=== PATIENT | female | born 1965 | race Caucasian/White ===

== ENCOUNTER → 2016-08-10 | Day surgery (SDC) | payer BC ==
[2016-08-05 08:47] VITALS: BMI 24.3
[~2016-08-10] MED LIST: ASPIRIN 81 MG CHEW PO SCH; CHOLECALCIFEROL 1,000 UNIT TAB PO SCH; CHROMIUM PICOLINATE PO SCH; CYANOCOBALAMIN 500 MCG TAB PO SCH; LACTOBACILLUS ACIDOPH & BULGAR 1 EACH PACKET PO SCH; LISINOPRIL 10 MG TAB PO SCH; MAGNESIUM OXIDE 250 MG TAB PO SCH; MIDAZOLAM 2 MG/2 ML VIAL IVP ONE; MIDAZOLAM 2 MG/2 ML VIAL ONE; MULTIVITAMINS, THERA 1 EACH TAB PO SCH; NON-FORMULARY DRUG (Omega-3 Fatty Acids/Fish Oil [Fish Oil 1,000 Mg Softgel] 1 EACH) PO SCH; SODIUM CHLORIDE 0.9% 1,000 ML IV ONE; SODIUM CHLORIDE 0.9% 1,000 ML IV SCH; fentaNYL (PF) 50 MCG/ML 2 ML AMP IV ONE; fentaNYL (PF) 50 MCG/ML 2 ML AMP ONE
[2016-08-10 06:29] VITALS: RESP 18
[2016-08-10] MEDS: BENZOCAINE SPRAY 100 APPLIC/CAN MUCOUS MEM ONE ×2 (07:12→07:15)
[2016-08-10 07:20] LABS: Basophils % (A) 1 %; CH 33.5; CHCM 34.9; Eosinophils # (A) 0.2 k/uL (0-0.7); Eosinophils % (A) 4 %; HCT 38.4 % (34.0-46.0); HDW 2.55; HGB 13.2 gm/dL (11.4-16.0); Luc # (Auto) 0.18; Luc % (Auto) 4; Lymphocytes # (A) 1.5 k/uL (1.0-4.8); Lymphocytes % (A) 33 %; MCHC 34.3 g/dL (31.0-37.0); MCV 96.3 fL (80.0-100.0); Mean Platelet Volume 6.8; Monocytes # (A) 0.2 k/uL (0-1.0); Monocytes % (A) 4 %; Neutrophils # (A) 2.4 k/uL (1.3-7.7); Neutrophils % (A) 54 %; RBC 3.98 m/uL (3.80-5.40); RDW 12.5 % (11.5-15.5); WBC 4.4 k/uL (3.8-10.6); WBC (Perox) 4.48
[2016-08-10 09:17] VITALS: BP 112/63; PULSE 66; TEMP 98.2
--- NOTE | 2016-08-10 13:49 | ECHOT ---
DATE OF SERVICE: 08/10/16. INDICATIONS: ( ) Mitral valve. PROCEDURE: After explaining the procedure to the patient, as well as the risks and complications, blood pressure, O2 saturation was monitored. The throat was sprayed with Cetacaine. She received 3 mg intravenous Versed, 50 micrograms Intravenous Fentanyl. The probe was introduced into the esophagus without difficulty and images were obtained. The probe was removed, there were no immediate complications. FINDINGS: Left atrial size is normal, left atrial appendage is normal, left ventricular size and systolic function were normal. The aortic valve, mitral valve, and tricuspid and pulmonic valve appears to be normal. Descending thoracic aorta appears to be normal. There was no shunting across the interatrial septum with Valsalva maneuver. DOPPLER: Pulse wave and color Doppler obtained and revealed mild to moderate mitral regurgitation with mild tricuspid regurgitation. There was no shunting by color Doppler study. CONCLUSION: 1. Normal left ventricular size systolic function. 2. Mild to moderate mitral regurgitation with normal appearance of the mitral valve. 3. Mild tricuspid regurgitation. 4. No shunting across the interatrial septum. 5. Normal appearance of the descending thoracic aorta. [facility]
== END | disposition home or self-care (01) ==
LOC: CATHCVL 05:54
PROVIDERS: ATTEND Internal Medicine Interventional Cardiology
DX: I08.1 Rheumatic disorders of both mitral and tricuspid valves (principal); I49.3 Ventricular premature depolarization; I10 Essential (primary) hypertension; Z79.82 Long term (current) use of aspirin; Z79.899 Other long term (current) drug therapy; Z88.5 Allergy status to narcotic agent; Z88.8 Allergy status to other drugs, medicaments and biological substances
CPT/HCPCS: 93312; 93320; 93325; 85025; 81025; J2250; J3010

== ENCOUNTER → 2017-02-23 | Outpatient (CLI) | payer BC ==
--- NOTE | 2017-02-24 10:30 | WWHP ---
DATE OF SERVICE: 02/23/2017 CHIEF COMPLAINT: The patient is here for her routine gynecologic exam. HPI: This is a 52-year-old G3, P3 with an LMP of 01/30/2017. The patient is status post tubal ligation. She is without gynecologic complaints and states her periods are regular every month. She denies hot flashes. PAST MEDICAL HISTORY: Chronic hypertension and intermittent PVC's. MEDICATIONS: 1. Lisinopril 10 mg daily. 2. Aspirin 81 mg daily. 3. Vitamin D3 five thousand units daily. 4. Multivitamin daily. 5. Fish oil supplement daily. 6. Vitamin B12 supplement daily. 7. Magnesium supplement daily. 8. Chromium supplement daily. 9. Probiotic daily. Allergies to MORPHINE, DEMEROL, and DARVOCET. The all cause tachycardia. 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 SOCIAL HISTORY: She smoked only as a teenager but quit. She has about 2 alcoholic drinks per week and denies drug use. 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 REVIEW OF SYSTEMS: Weight has been stable. She denies respiratory, cardiac or GI problems. PHYSICAL EXAM: Blood pressure 134/81, height 5 feet 10 inches, weight 177 pounds, temperature 98.6, pulse 71. This is a well-developed, well-nourished white female who is alert and oriented x3, in no acute distress. HEENT is within normal limits. NECK: Supple without mass or thyromegaly. CHEST AND LUNGS: Clear to auscultation. HEART: Regular rate and rhythm. Breasts are without mass or discharge. Axillary exam is negative for adenopathy. BACK: Negative for CVA tenderness. ABDOMEN: Soft, nontender without palpable masses. PELVIC EXAM: Normal external genitalia. Cervix and vagina appear normal. There is no evidence of prolapse. The uterus is midposition, nongravid size and nontender. There are no palpable adnexal masses or tenderness. RECTOVAGINAL EXAM is negative for mass or tenderness and is negative for occult blood. EXTREMITIES: Nontender. IMPRESSION: 1. A 52-year-old premenopausal female with normal gynecologic exam. 2. She is status post tubal ligation. PLAN: 1. PAP smear was performed. 2. Self breast examination was discussed. 3. Mammogram will be due next month and a slip was given to the patient for this. 4. Osteoporosis prevention was discussed. 5. She will return in 1 year. JOHANNA
== END | disposition home or self-care (01) ==
LOC: WWCWWP 09:16
PROVIDERS: ATTEND Obstetrics & Gynecology
DX: Z01.419 Encounter for gynecological examination (general) (routine) without abnormal findings (principal)

== ENCOUNTER → 2017-03-08 | Outpatient (CLI) | payer BC ==
--- NOTE | 2017-03-09 11:32 | MM ---
Reason for exam: screening (asymptomatic). Last mammogram was performed 1 year ago. History: Benign US biopsy breast VAD LT of the left breast, November 12, 2015. Physical Findings: A clinical breast exam by your physician is recommended on an annual basis and results should be correlated with mammographic findings. MG 3D Screening Mammo W/Cad Bilateral CC and MLO view(s) were taken. Prior study comparison: March 04, 2016, bilateral MG 3d diag mammo w/cad ILDEFONSO. November 12, 2015, left breast MG diagnostic mammo LT wo CAD. The breast tissue is heterogeneously dense. This may lower the sensitivity of mammography. Previous mammotome biopsy in the left breast. No significant changes when compared with prior studies. ASSESSMENT: Benign, BI-RAD 2 RECOMMENDATION: Routine screening mammogram of both breasts in 1 year.
== END | disposition home or self-care (01) ==
LOC: RADMAMWWP 07:32
PROVIDERS: ATTEND Obstetrics & Gynecology
DX: Z12.31 Encounter for screening mammogram for malignant neoplasm of breast (principal)
CPT/HCPCS: 77063; G0202

== ENCOUNTER 2017-09-20 08:14 | Day surgery (SDC) | payer BC ==
[2017-09-16 11:06] VITALS: BMI 25.1
[~2017-09-20 08:14] MED LIST changes: -ASPIRIN 81 MG CHEW PO SCH; -CHOLECALCIFEROL 1,000 UNIT TAB PO SCH; -CHROMIUM PICOLINATE PO SCH; -CYANOCOBALAMIN 500 MCG TAB PO SCH; +LACTATED RINGERS 1,000 ML IV SCH; -LACTOBACILLUS ACIDOPH & BULGAR 1 EACH PACKET PO SCH; -LISINOPRIL 10 MG TAB PO SCH; -MAGNESIUM OXIDE 250 MG TAB PO SCH; -MIDAZOLAM 2 MG/2 ML VIAL IVP ONE; -MIDAZOLAM 2 MG/2 ML VIAL ONE; -MULTIVITAMINS, THERA 1 EACH TAB PO SCH; -NON-FORMULARY DRUG (Omega-3 Fatty Acids/Fish Oil [Fish Oil 1,000 Mg Softgel] 1 EACH) PO SCH; -SODIUM CHLORIDE 0.9% 1,000 ML IV ONE; -SODIUM CHLORIDE 0.9% 1,000 ML IV SCH; -fentaNYL (PF) 50 MCG/ML 2 ML AMP IV ONE; -fentaNYL (PF) 50 MCG/ML 2 ML AMP ONE
[2017-09-20 09:05] VITALS: TEMP 98.2
[2017-09-20] MEDS ORDERED: LIDOCAINE 1% 20 ML VIAL (10MG/ML) FOR IV START INTRADERMA ONE (09:05)
[2017-09-20] MEDS ORDERED: PROPOFOL 10 MG/ML 20 ML VIAL IV ONE (09:10)
--- NOTE | 2017-09-20 09:37 | P.PCN ---
Date of Procedure: 09/20/17 Procedure(s) Performed: Procedure: Total colonoscopy. Preoperative diagnosis: Screening for neoplasia. Postoperative diagnosis: Exam within normal limits. Preparation: HalfLytely prep. Sedation: Was provided by anesthesia. Brief clinical history: The patient is a 52-year-old female who is scheduled for this evaluation for screening for neoplasia. She has nonspecific abdominal complaints but no bleeding or anemia. Patient is adopted and accordingly she is not aware of any FH of colon cancer. This would be her first colonoscopy. Procedure: With the patient on her left lateral decubitus position and after informed consent and adequate sedation, the perianal area was inspected and it did not show any fissures or fistulas. There were no masses felt on digital rectal examination. The Olympus CFQ 160L video colonoscope was then inserted in the rectum in the usual fashion and advanced to the cecum. The mucosa appeared healthy. No polyps or tumors were seen or any obvious diverticular disease or other pathology. I retroflexed the endoscope in the rectum before the endoscope was withdrawn. The patient tolerated the procedure well. Plan: The patient was reassured. She will follow-up with you as planned and I recommended repeat exam in 10 years.
[2017-09-20 09:53] VITALS: BP 124/84; PULSE 65; RESP 16
== END 2017-09-20 10:04 | disposition home or self-care (01) ==
LOC: ORWHC2ENDO 08:14
DX: Z12.11 Encounter for screening for malignant neoplasm of colon (principal); I10 Essential (primary) hypertension; Z79.82 Long term (current) use of aspirin; Z79.899 Other long term (current) drug therapy; Z88.5 Allergy status to narcotic agent
CPT/HCPCS: 81025; J2704; G0121

== ENCOUNTER → 2018-09-20 | Outpatient (CLI) | payer BC ==
[2018-09-20 13:00] VITALS: BP 138/72; PULSE 90; RESP 18; TEMP 98.1; BMI 25.1
--- NOTE | 2018-09-20 13:49 | P.HPOB ---
History of Present Illness H&P Date: 09/20/18 Chief Complaint: The patient is here for her routine gynecologic exam and mammogram. This is a 53-year-old G3 PIII with an LMP of 08/29/2018. The patient is without gynecologic complaints. She states her menses have been regular every month except she did not have a menstrual period in June 2018. She denies hot flashes during the day but occasionally has some hot flashes at night around the time of her menstrual period. Review of Systems The patient has gained 2 pounds over the last year. She denies respiratory, cardiac, or G.I. problems. Past Medical History Past Medical History: Hypertension Additional Past Medical History / Comment(s): HEART PALPITATIONS, PVC's occ, leaky mitral valve. 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 History of Any Multi-Drug Resistant Organisms: None Reported Past Surgical History: Breast Surgery (Left biopsy), Joint Replacement, Orthopedic Surgery, Tonsillectomy, Tubal Ligation Additional Past Surgical History / Comment(s): LEFT HIP replacement X2, ILDEFONSO FOOT RECONSTRUCTION, CORRECTIVE OSTEOTOMY ildefonso hips, unilateral salpingo- oophorectomy in 1988. Colonoscopy 2018(next 10 yrs). Past Anesthesia/Blood Transfusion Reactions: No Reported Reaction Additional Past Anesthesia/Blood Transfusion Reaction / Comment(s): HX OF BLOOD TRANSFUSION-NO REACTION. NO FAMILY HX- PT ADOPTED. 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 - Past Family History Mother Family Medical History: Unable to Obtain Additional Family Medical History / Comment(s): PT ADOPTED Medications and Allergies Home Medications Medication Instructions Recorded Confirmed Type Aspirin [Adult Low Dose Aspirin EC] 81 mg PO DAILY 08/05/16 09/20/18 History Cholecalciferol [Vitamin D3] 2,000 unit PO DAILY 08/05/16 09/20/18 History Chromium Picolinate 1 tab PO DAILY 08/05/16 09/20/18 History L.acidoph,Paracasei, B.lactis 1 each PO DAILY 08/05/16 09/20/18 History [Probiotic] Lisinopril [Zestril] 10 mg PO DAILY 08/05/16 09/20/18 History Magnesium 500 mg PO DAILY 08/05/16 09/20/18 History Multivitamins, Thera [Multivitamin] 1 tab PO DAILY 08/05/16 09/20/18 History Beth[place]-3 Fatty Acids/Fish Oil [Fish 1 each PO DAILY 08/05/16 09/20/18 History Oil 1,000 mg Softgel] Vitamin B-12 1 tab PO DAILY 08/05/16 09/20/18 History Allergies Allergy/AdvReac Type Severity Reaction Status Date / Time meperidine [From Demerol] AdvReac Unknown Rapid Verified 09/20/17 08:40 Heart Rate, Sweats morphine AdvReac Unknown Rapid Verified 09/20/17 08:40 Heart Rate, Sweats propoxyphene AdvReac Unknown Rapid Verified 09/20/17 08:40 [From Darvocet-N 100] Heart Rate, Sweats Exam Vital Signs Temp Pulse Resp BP Pulse Ox 09/20/18 12:57 98.1 F 90 18 138/72 97 Intake and Output 09/19/18 09/20/18 09/20/18 22:59 06:59 14:59 Other: Weight 79.379 kg Height 5'10", weight 175 pounds, BMI 25.1. This is a well-developed well-nourished white female who is alert and oriented times 3 in no acute distress. HEENT: Within normal limits. NECK: Supple without mass or thyromegaly. CHEST AND LUNGS: Clear to auscultation. HEART: Regular rate and rhythm. BREASTS: Are without mass or discharge. AXILLARY EXAM: Negative for adenopathy. BACK: Negative for CVA tenderness. ABDOMEN: Soft, nontender, without palpable masses. PELVIC EXAM: Normal external genitalia. Cervix and vagina appear normal. There is no unusual discharge. There is no evidence of prolapse. The uterus is midposition, nongravid size and nontender. There are no palpable adnexal masses or tenderness. RECTAL EXAM: rectovaginal exam is negative for mass or tenderness and is negative for occult blood. EXTREMITIES: Nontender. IMPRESSION: 1. 53-year-old female status post tubal sterilization with normal gynecologic exam. Probable early perimenopause. PLAN: 1. Pap smear was deferred since she had a normal one on 02/23/2017. 2. Self breast awareness was discussed with the patient. 3. Screening mammogram will be done today. 4. Osteoporosis prevention was discussed. I have stressed the importance of adequate calcium, vitamin D and regular exercise. Recommended amounts of calcium and vitamin D were also discussed. 5. She will return in one year.
--- NOTE | 2018-09-22 09:55 | MM ---
Reason for exam: screening (asymptomatic). Last mammogram was performed 1 year and 6 months ago. History: Benign US biopsy breast VAD LT of the left breast, November 12, 2015. Physical Findings: A clinical breast exam by your physician is recommended on an annual basis and results should be correlated with mammographic findings. MG 3D Screening Mammo W/Cad Bilateral CC and MLO view(s) were taken. Prior study comparison: March 08, 2017, bilateral MG 3d screening mammo w/cad. March 04, 2016, bilateral MG 3d diag mammo w/cad ILDEFONSO. The breast tissue is heterogeneously dense. This may lower the sensitivity of mammography. Finding: There are typically benign stable fine grouped/clustered calcifications in the upper outer quadrant of the right breast. Previous mammotome biopsy in the left breast. No significant changes in finding since March 08, 2017 and March 04, 2016. ASSESSMENT: Benign, BI-RAD 2 RECOMMENDATION: Routine screening mammogram of both breasts in 1 year.
== END | disposition home or self-care (01) ==
LOC: WWCWWP 12:42
PROVIDERS: ATTEND Obstetrics & Gynecology
DX: Z12.31 Encounter for screening mammogram for malignant neoplasm of breast (principal)
CPT/HCPCS: 77063; 77067

== ENCOUNTER → 2019-05-09 | Outpatient (CLI) | payer BC ==
[2019-05-09 08:18] VITALS: BP 143/85; PULSE 69; RESP 16; TEMP 98.1; BMI 25.2
--- NOTE | 2019-05-09 09:13 | P.PN ---
Progress Note - Text Progress Note Date: 05/09/19 Chief Complaint: Heavier menstrual bleeding with irregularity HPI: This is a 54-year-old with an LMP of 04/23/2019. She is status post tubal ligation. Menstrual periods have become slightly irregular about every 4- 7 weeks with heavier flow than usual. She has to change her protection every 2 hours when the bleeding is heavy and has soaked through her protection at times. She has also noticed some clotting. She also has several days of spotting following the heavier flow. She has noticed hot flashes and night sweats which are not very severe. She has also noticed more discomfort with sexual intercourse and this can feel "raw". She has tried lubricants without success. On the heavier period days she can occasionally feel lightheaded. She also feels that she can get more emotional at times. ROS: She denies respiratory, cardiac, or GI problems. PE: Blood pressure: 143/85, Height: 5 feet 10 inches, Weight: 176 pounds, Temperature: 98.1, Pulse: 69. Pulse oximeter 99%. This is a well developed, well nourished, white female who is alert and orientedx3, in no acute distress. Pelvic exam: Normal external genitalia. Cervix and vagina appear normal without significant atrophy. There is no unusual discharge. There is no cervical motion tenderness. Uterus is mid position, multiparous, nongravid size and nontender. There are no palpable adnexal masses or tenderness. Impression: 1. 54-year-old perimenopausal female who is status post tubal ligation, with normal gynecologic exam. 2. Menorrhagia associated with perimenopausal changes. 3. Mild vasomotor symptoms and vaginal dryness which is probably secondary to perimenopausal changes. 4. Occasional lightheadedness associated with menorrhagia. Plan: 1. Lab studies will include TSH and CBC. 2. Trial of meclofenamate sodium 100 mg 3 times a day by mouth when necessary for heavy menstrual flow off to 6 days per cycle. The electronic prescription will be sent to my her pharmacy in [place]. 3. We discussed other options for the perimenopause including HRT and SSRI treatments. We have discussed possible risks of HRT including blood clots, increased risk for breast cancer, heart attack and stroke. She would like to avoid HRT at this time. 4. I have asked her to consistently use a lubricant and try to find one that is helpful for the vaginal dryness. 5. If she is not noticing significant improvement with the menorrhagia after 3 months, we will consider referral for endometrial ablation. The ACOG FAQ handout on endometrial ablation was given to the patient. 6. She will keep a menstrual calendar. 7. She will return in September 2019 for her annual examination and as needed. Time spent with the patient: 25 minutes
[2019-05-09 10:57] LABS: HCT 38.5 % (34.0-46.0); HGB 13.2 gm/dL (11.4-16.0); MCH 32.3 pg (25.0-35.0); MCHC 34.4 g/dL (31.0-37.0); MCV 93.9 fL (80.0-100.0); Platelet Count 240 k/uL (150-450); RBC 4.09 m/uL (3.80-5.40); RDW 12.8 % (11.5-15.5); WBC 4.4 k/uL (3.8-10.6)
== END ==
LOC: WWCWWP 07:59
PROVIDERS: ATTEND Obstetrics & Gynecology
DX: N92.1 Excessive and frequent menstruation with irregular cycle (principal); N92.4 Excessive bleeding in the premenopausal period
CPT/HCPCS: 36415; 84443; 85027

== ENCOUNTER → 2020-04-10 | Outpatient (CLI) | payer BC ==
[2020-04-10 08:00] VITALS: BP 142/84; PULSE 76; RESP 18; TEMP 98.5
--- NOTE | 2020-04-10 08:57 | P.HPOB ---
History of Present Illness H&P Date: 04/10/20 Chief Complaint: The patient is here for her routine gynecologic exam and ma mmogram. This is a 55-year-old with an LMP of 03/27/2020. The patient is status post tubal ligation. The patient states her menstrual periods have been slightly irregular. They have been about every 1-2 months. They're typically lasting 5-7 days. She has had 2 menstrual periods over the last year that lasted close to 2 weeks. She had no menstrual periods in May and June 2019 and her July menstrual period lasted 2 weeks with 5 days of heavier flow. She did not use meclofenamate sodium because she was concerned about some side effects. She has been experiencing hot flashes and night sweats, but recently the night sweats have improved. She has been taking Estroven OTC for her hot flashes. She is not sure if they are helping. She is otherwise without complaints. Review of Systems She is gained about 6 pounds over the last year. She denies respiratory or cardiac problems. GI: Certain foods seem to make her gassy. She wonders if thi s is related to the menopausal change. Past Medical History Past Medical History: Hypertension Additional Past Medical History / Comment(s): HEART PALPITATIONS, PVC's occ, leaky mitral valve. 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 History of Any Multi-Drug Resistant Organisms: None Reported Past Surgical History: Breast Surgery, Joint Replacement, Orthopedic Surgery, Tonsillectomy, Tubal Ligation Additional Past Surgical History / Comment(s): LEFT HIP replacement X2, ILDEFONSO FOOT RECONSTRUCTION, CORRECTIVE OSTEOTOMY ildefonso hips, unilateral salpingo-oophorectomy in 1988. Colonoscopy 2018(next after 10 yrs). Past Anesthesia/Blood Transfusion Reactions: No Reported Reaction Additional Past Anesthesia/Blood Transfusion Reaction / Comment(s): HX OF BLOOD TRANSFUSION-NO REACTION. NO FAMILY HX- PT ADOPTED. 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 - Past Family History Mother Family Medical History: Unable to Obtain Additional Family Medical History / Comment(s): PT ADOPTED Medications and Allergies Home Medications Medication Instructions Recorded Confirmed Type Aspirin [Adult Low Dose Aspirin EC] 81 mg PO DAILY 08/05/16 04/10/20 History L.acidoph,Paracasei, B.lactis 1 each PO DAILY 08/05/16 04/10/20 History [Probiotic] Multivitamins, Thera [Multivitamin] 1 tab PO DAILY 08/05/16 04/10/20 History [place]-3 Fatty Acids/Fish Oil [Fish 1 each PO DAILY 08/05/16 04/10/20 History Oil 1,000 mg Softgel] lisinopriL [Zestril] 10 mg PO DAILY 08/05/16 04/10/20 History Soy Isofla/Blk Cohosh/Mag Bark 155 mg PO QAM 04/10/20 04/10/20 History [Estroven 155 mg Capsule] Allergies Allergy/AdvReac Type Severity Reaction Status Date / Time meperidine [From Demerol] AdvReac Unknown Rapid Verified 04/10/20 07:54 Heart Rate, Sweats morphine AdvReac Unknown Rapid Verified 04/10/20 07:54 Heart Rate, Sweats propoxyphene AdvReac Unknown Rapid Verified 04/10/20 07:54 [From Darvocet-N 100] Heart Rate, Sweats Exam Vital Signs Temp Pulse Resp BP Pulse Ox 04/10/20 07:57 98.5 F 76 18 142/84 99 Intake and Output 04/09/20 04/10/20 04/10/20 22:59 06:59 14:59 Other: Weight 82.1 kg Height 5 feet 10 inches, weight 181 pounds, BMI 26.0. This is a well-developed well-nourished white female who is alert and oriented times 3 in no acute distress. HEENT: Within normal limits. NECK: Supple without mass or thyromegaly. CHEST AND LUNGS: Clear to auscultation. HEART: Regular rate and rhythm. BREASTS: Are without mass or discharge. AXILLARY EXAM: Negative for adenopathy. BACK: Negative for CVA tenderness. ABDOMEN: Soft, nontender, without palpable masses. PELVIC EXAM: Normal external genitalia. Cervix and vagina appear normal. There is no unusual discharge. There is no evidence of prolapse. The uterus is midposition, nongravid size and nontender. There are no palpable adnexal masses or tenderness. RECTAL EXAM: Rectovaginal exam is negative for mass or tenderness and is negative for occult blood. EXTREMITIES: Nontender. IMPRESSION: 1. 55-year-old perimenopausal female with some menstrual irregularity and intermittent mild hypermenorrhea with normal gynecologic exam. 2. Vasomotor symptoms related to the perimenopausal change. 3. The patient is status post tubal ligation. PLAN: 1. Pap smear was performed. 2. Self breast awareness was discussed with the patient. 3. Screening mammogram will be done today. 4. The patient will continue to keep a menstrual calendar and call if menstrual problems. We have discussed options for her hypermenorrhea including meclofenamate sodium, cyclic progestin therapy, and endometrial ablation. 5. She was advised to return in one year for her annual well woman exam.
--- NOTE | 2020-04-11 10:01 | MM ---
Reason for exam: screening (asymptomatic). Last mammogram was performed 1 year and 7 months ago. History: Benign US biopsy breast VAD LT of the left breast, November 12, 2015. Physical Findings: A clinical breast exam by your physician is recommended on an annual basis and results should be correlated with mammographic findings. MG 3D Screening Mammo W/Cad Bilateral CC and MLO view(s) were taken. XCCL view(s) were taken of the right breast. Prior study comparison: September 20, 2018, bilateral MG 3d screening mammo w/cad. March 08, 2017, bilateral MG 3d screening mammo w/cad. The breast tissue is heterogeneously dense. This may lower the sensitivity of mammography. There are benign appearing round calcifications in the right breast. Previous mammotome biopsy in the left breast. There is no discrete abnormality. ASSESSMENT: Benign, BI-RAD 2 RECOMMENDATION: Routine screening mammogram of both breasts in 1 year.
== END | disposition home or self-care (01) ==
LOC: WWCWWP 07:45
PROVIDERS: ATTEND Obstetrics & Gynecology
DX: Z12.31 Encounter for screening mammogram for malignant neoplasm of breast (principal)
CPT/HCPCS: 77063; 77067

== ENCOUNTER → 2020-08-20 | Outpatient (CLI) | payer BC ==
--- NOTE | 2020-08-20 12:39 | US ---
EXAMINATION TYPE: US gallbladder DATE OF EXAM: 08/20/2020 COMPARISON: NONE CLINICAL HISTORY: R10.11 right upper quadrant pain. EXAM MEASUREMENTS: Liver Length: 10.8 cm Gallbladder Wall: 0.2 cm CBD: 0.5 cm Right Kidney: 11.5 x 4.8 x 4.9 cm Pancreas: wnl Liver: wnl Gallbladder: No stones seen Evidence for sonographic Ricketts's sign: No CBD: wnl Right Kidney: Echoes in renal sinus isoechoic to cortex and likely represents normal renal cortex. There is no ascites. 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
== END | disposition home or self-care (01) ==
LOC: RADUSWWP 08:48
PROVIDERS: ATTEND Family Medicine
DX: R10.11 Right upper quadrant pain (principal)
CPT/HCPCS: 76705

== ENCOUNTER → 2020-09-20 | Outpatient (CLI) | payer BC ==
--- NOTE | 2020-09-20 11:07 | NM ---
Nuclear medicine hepatobiliary scan. HISTORY: Pain. DOSAGE: The patient received 8 ounces of ensure plus and 4.4 mCi of Technetium 99m Choletec. FINDINGS: There is normal hepatic extraction. The gallbladder is seen by 20 minutes. There is bilia ry to bowel clearance by faintly at 60 minutes. Ejection fraction is 66%. IMPRESSION: 1. Normal hepatobiliary exam
== END | disposition home or self-care (01) ==
LOC: RADNMMAIN 06:47
PROVIDERS: ATTEND Family Medicine
DX: R10.11 Right upper quadrant pain (principal); Z88.5 Allergy status to narcotic agent; Z91.02 Food additives allergy status
CPT/HCPCS: 78226; A9537

== ENCOUNTER → 2022-02-03 | Outpatient (CLI) | payer BC, MEDICAID ==
--- NOTE | 2022-02-04 10:08 | MM ---
Reason for Exam: Screening (asymptomatic). Last mammogram was performed 1 year(s) and 10 month(s) ago. Patient History: Menarche at age 15. First Full-Term at age 22. Left ovary removed at age 47. 11/12/2015, Benign Core Biopsy on the left side. Last menstrual period: 01/11/2022 Risk Values: Carol 5 year model risk: 1.2%. NCI Lifetime model risk: 7.8%. Prior Study Comparison: 03/04/2016 Bilateral Diagnostic Mammogram, [facility]. 03/08/2017 Bilateral Screening Mammogram, [facility]. 09/20/2018 Bilateral Screening Mammogram, [facility]. 04/10/2020 Bilateral Screening Mammogram, [facility]. Tissue Density: The breast tissue is heterogeneously dense. This may lower the sensitivity of mammography. Findings: Analyzed By CAD. Stable scattered benign-appearing round calcifications in the bilateral breasts. Benign appearing vascular calcification in the left breast is redemonstrated along with mammotome biopsy clip. Stable more grouped benign-appearing round calcifications in the posterior upper-outer aspect right breast. Benign appearing bilateral axillary lymph nodes are redemonstrated. There is no suspicious group of microcalcifications or new suspicious mass in either breast. Overall Assessment: Benign, BI-RAD 2 Management: Screening Mammogram of both breasts in 1 year. A clinical breast exam by your physician is recommended on an annual basis and results should be correlated with mammographic findings. Electronically signed and approved by: Ross Crawford M.D.
== END | disposition home or self-care (01) ==
LOC: RADMAMWWP 07:25
PROVIDERS: ATTEND Obstetrics & Gynecology
DX: Z12.31 Encounter for screening mammogram for malignant neoplasm of breast (principal)
CPT/HCPCS: 77063; 77067

== ENCOUNTER → 2022-04-21 | Outpatient (CLI) | payer MEDICAID ==
[2022-04-21 08:09] VITALS: BP 148/80; PULSE 67; RESP 16; TEMP 97.8
--- NOTE | 2022-04-21 08:52 | P.HPOB ---
History of Present Illness H&P Date: 04/21/22 Chief Complaint: The patient is here for her routine gynecologic exam. This is a 57-year-old with an LMP of 03/01/2022. Her menstrual periods have been fairly regular every month, but she has had months where she was laid or missed periods. She did not have a menstrual period in November and also seems to be late this month. She is status post tubal ligation. She states she is having fewer heavy menstrual flow days and they have been tolerable. She has decided against using medication for the menstrual periods and also is declining the endometrial ablation. Review of Systems Weight has been stable. She denies respiratory or cardiac problems. GI: She tends to get gassy with certain foods and this is not new. Past Medical History Past Medical History: Hypertension Additional Past Medical History / Comment(s): HEART PALPITATIONS, PVC's occ, leaky mitral valve. 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 History of Any Multi-Drug Resistant Organisms: None Reported Past Surgical History: Breast Surgery, Joint Replacement, Orthopedic Surgery, Tonsillectomy, Tubal Ligation Additional Past Surgical History / Comment(s): LEFT HIP replacement X2, ILDEFONSO FOOT RECONSTRUCTION, CORRECTIVE OSTEOTOMY ildefonso hips, unilateral salpingo-oophorectomy in 1988. Colonoscopy 2018(next after 10 yrs). Past Anesthesia/Blood Transfusion Reactions: No Reported Reaction Additional Past Anesthesia/Blood Transfusion Reaction / Comment(s): HX OF BLOOD TRANSFUSION-NO REACTION. NO FAMILY HX- PT ADOPTED. 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) Past Drug Use History: None Reported - Past Family History Mother Family Medical History: Unable to Obtain Additional Family Medical History / Comment(s): PT ADOPTED Medications and Allergies Home Medications Medication Instructions Recorded Confirmed Type Aspirin [Adult Low Dose Aspirin EC] 81 mg PO DAILY 08/05/16 04/21/22 History L.acidoph,Paracasei, B.lactis 1 each PO DAILY 08/05/16 04/21/22 History [Probiotic] Multivitamins, Thera [Multivitamin] 1 tab PO DAILY 08/05/16 04/21/22 History [place]-3 Fatty Acids/Fish Oil [Fish 1 each PO DAILY 08/05/16 04/21/22 History Oil 1,000 mg Softgel] lisinopriL [Zestril] 10 mg PO DAILY 08/05/16 04/21/22 History Calcium Carbonate/Vitamin D3 1 tab PO DAILY 04/21/22 04/21/22 History [Calcium 250-D Tablet] Allergies Allergy/AdvReac Type Severity Reaction Status Date / Time meperidine [From Demerol] AdvReac Unknown Rapid Verified 04/21/22 08:04 Heart Rate, Sweats morphine AdvReac Unknown Rapid Verified 04/21/22 08:04 Heart Rate, Sweats propoxyphene AdvReac Unknown Rapid Verified 04/21/22 08:04 [From Darvocet-N 100] Heart Rate, Sweats Exam Vital Signs Temp Pulse Resp BP Pulse Ox 04/21/22 08:06 97.8 F 67 16 148/80 98 Intake and Output 04/20/22 04/21/22 04/21/22 22:59 06:59 14:59 Other: Weight 82.1 kg Height 5 feet 10 inches, weight 181 pounds, BMI 26.0. This is a well-developed well-nourished white female who is alert and oriented times 3 in no acute distress. HEENT: Within normal limits. NECK: Supple without mass or thyromegaly. CHEST AND LUNGS: Clear to auscultation. HEART: Regular rate and rhythm. BREASTS: Are without mass or discharge. AXILLARY EXAM: Negative for adenopathy. BACK: Negative for CVA tenderness. ABDOMEN: Soft, nontender, without palpable masses. PELVIC EXAM: Normal external genitalia. Cervix and vagina appear normal. There is no unusual discharge. There is no evidence of prolapse. The uterus is midposition, multiparous nongravid size and nontender. There are no palpable adnexal masses or tenderness. RECTAL EXAM: Rectovaginal exam is negative for mass or tenderness and is negative for occult blood. EXTREMITIES: Nontender. IMPRESSION: 1. 57-year-old perimenopausal female with recent slight menstrual irregularity who is status post tubal ligation, with normal gynecologic exam. 2. Tolerable mild hypermenorrhea. PLAN: 1. Pap smear cotest was performed. 2. Self breast awareness was discussed with the patient. We have also discussed symptoms associated with inflammatory breast cancer. 3. Screening mammogram was done on 02/03/2022 and was benign. This will be repeated in 1 year. 4. Osteoporosis prevention was discussed. I have stressed the importance of adequate calcium, vitamin D and regular exercise. Recommended amounts of calcium and vitamin D were also discussed. 5. She will continue to keep a menstrual calendar and call if menstrual problems. At this time she is declining any treatment for heavy menstrual flow. It seems that the number of heavy menstrual flow days are declining. On the menstrual calendar that she has given me she tends to have 1 or 2 days of heavier flow during her cycle. She states they "have not been awful". 6. She has completed her Covid vaccination series and has not received any boosters. We have discussed how boosters may increase protection against Covid. 7. She was advised to return in one year for her annual well woman exam.
== END ==
LOC: WWCWWP 07:57
PROVIDERS: ATTEND Obstetrics & Gynecology
DX: Z01.419 Encounter for gynecological examination (general) (routine) without abnormal findings (principal); N92.0 Excessive and frequent menstruation with regular cycle; N92.5 Other specified irregular menstruation; I10 Essential (primary) hypertension; Z87.891 Personal history of nicotine dependence; Z78.0 Asymptomatic menopausal state; Z98.51 Tubal ligation status; Z88.5 Allergy status to narcotic agent

== ENCOUNTER → 2022-04-24 | Outpatient (CLI) | payer MEDICAID ==
--- NOTE | 2022-04-24 14:47 | NM ---
EXAMINATION TYPE: NM bone 3 phase DATE OF EXAM: 04/24/2022 COMPARISON: NONE HISTORY: T 84.039A Triple phase bone scintigraphy was performed following the injection of 21.9 mCi Tc 99m MDP. Immedia te images and 5 hours post injection images acquired centered over the pelvis. FINDINGS: Photopenic area is present over the left hip. There is no increased blood flow or blood pool activity to suggest infection. Mild increased uptake present at the level of acetabulum and proximal femur is noted. Soft tissue uptake is within normal limits. IMPRESSION: No scintigraphic evidence of osteomyelitis. Nonspecific uptake about the patient's left hip prosthesi s is mild, equivocal, loosening of patient's left hip prosthesis not excluded
== END | disposition home or self-care (01) ==
LOC: RADNMMAIN 07:33
PROVIDERS: ATTEND Orthopaedic Surgery
DX: T84.033A Mechanical loosening of internal left knee prosthetic joint, initial encounter (principal)
CPT/HCPCS: 78315; A9503

== ENCOUNTER → 2022-05-13 | Outpatient (CLI) | payer MEDICAID ==
--- NOTE | 2022-05-14 04:52 | MR ---
EXAMINATION TYPE: MR hip LT wo con DATE OF EXAM: 05/13/2022 COMPARISON: None HISTORY: Left hip pain x 1 year, hx replacement. Multiplanar multiecho imaging of the pelvis and left hip performed without contrast. There is left hip prosthesis. Detail is obscured significantly by the metal artifact. The proximal sh aft of the femur appears intact. The hip prosthesis obscures all live detail of the soft tissue and b one at the hip joint. No pathologic fluid collection. No evidence of focal bone destruction. No evide nce of free fluid in the pelvis. The signal pattern of the bone marrow around the femoral component o f the prosthesis appears normal on the sagittal proton density images. No bone edema. No fracture jordon e seen. IMPRESSION: Exam fails to demonstrate evidence of fracture or osteomyelitis. No sign of loosening. No pathologic fluid collection. Acetabular component region not evaluated.
== END | disposition home or self-care (01) ==
LOC: RADMRIMAIN 21:45
PROVIDERS: ATTEND Orthopaedic Surgery
DX: T84.039A Mechanical loosening of unspecified internal prosthetic joint, initial encounter (principal); M25.552 Pain in left hip

== ENCOUNTER → 2022-07-03 | Outpatient (CLI) | payer MEDICAID ==
--- NOTE | 2022-07-03 08:46 | CT ---
EXAMINATION TYPE: CT sinus wo con DATE OF EXAM: 07/03/2022 COMPARISON: None HISTORY: 57-year-old female J3 2.9, Chronic Sinusitis CT DLP: 641.6 mGycm Automated exposure control for dose reduction was used. TECHNIQUE: Noncontrast axial views of the paranasal sinuses were obtained. Coronal and sagittal refor matted images were obtained from the axial views for evaluation of nasal cavity, osteomeatal complex and skull base integrity. FINDINGS: PARANASAL SINUSES: There is only trace mucosal thickening anterior ethmoid air cells on both sides. Additional trace mucosal thickening floor of the right maxillary sinus and near the right maxillary i nfundibulum. Otherwise, frontal, left maxillary, and sphenoid sinuses are well pneumatized. There is no air-fluid level. Reactive kt- osteogenesis is not seen. There is no destruction of the osseous pastrana of the paranasal sinuses. THE NASAL CAVITY: The osteomeatal complexes are patent. There is slight leftward bowing of the superior nasal septum. The imaged brain, sella, skull base and orbits are normal in appearance. Mastoid air cells and middle ear cavities are well pneumatized. Reformatted images confirm above findings. IMPRESSION: Only trace mucosal thickening within the anterior ethmoid air cells and right maxillary sinus. Slight leftward bowing of the superior nasal septum.
== END | disposition home or self-care (01) ==
LOC: RADCTMAIN 06:14
PROVIDERS: ATTEND Otolaryngology
DX: J32.9 Chronic sinusitis, unspecified (principal)
CPT/HCPCS: 70486

== ENCOUNTER → 2022-08-10 | Outpatient (CLI) | payer MEDICAID | END | disposition home or self-care (01) | LOC: LABWHC1 07:08 | PROVIDERS: ATTEND Orthopaedic Surgery Adult Reconstructive Orthopaedic Surgery | DX: T84.84XA Pain due to internal orthopedic prosthetic devices, implants and grafts, initial encounter (principal); Y79.2 Prosthetic and other implants, materials and accessory orthopedic devices associated with adverse incidents | CPT/HCPCS: 36415; 85652; 86140 ==

== ENCOUNTER → 2022-08-19 | Outpatient (CLI) | payer MEDICAID | END | disposition home or self-care (01) | LOC: LABWHC1 06:59 | PROVIDERS: ATTEND Orthopaedic Surgery Adult Reconstructive Orthopaedic Surgery | DX: T84.84XD Pain due to internal orthopedic prosthetic devices, implants and grafts, subsequent encounter (principal); Y79.2 Prosthetic and other implants, materials and accessory orthopedic devices associated with adverse incidents; Z96.642 Presence of left artificial hip joint ==

== ENCOUNTER → 2022-08-20 | Outpatient (CLI) | payer MEDICAID | END | disposition home or self-care (01) | LOC: LABWHC1 07:06 | PROVIDERS: ATTEND Family Medicine | DX: T84.84XD Pain due to internal orthopedic prosthetic devices, implants and grafts, subsequent encounter (principal); Z96.642 Presence of left artificial hip joint; Y82.9 Unspecified medical devices associated with adverse incidents | CPT/HCPCS: 36415 ==

== ENCOUNTER → 2023-05-05 | Outpatient (CLI) | payer MEDICAID ==
[2023-05-05 08:12] VITALS: BP 135/76; PULSE 68; RESP 16; TEMP 97.9
--- NOTE | 2023-05-05 08:52 | P.HPOB ---
History of Present Illness H&P Date: 05/05/23 Chief Complaint: The patient is here for her routine gynecologic exam and ma mmogram. This is a 58-year-old with an LNMP of 03/06/2023. She is status post tubal ligation. She had a normal menstrual period in May 2022 then went for 6 months without a menstrual period. She did have some mild vasomotor symptoms at that time. She has had menstrual periods in October, January, and March, then had 10 days of spotting starting April 05. She denies any recent hot flashes. She is otherwise without gynecologic complaints. Review of Systems The patient has gained 7 pounds over the last year. She denies respiratory, cardiac, or G.I. problems. Past Medical History Past Medical History: Hypertension Additional Past Medical History / Comment(s): HEART PALPITATIONS, PVC's occ, leaky mitral valve. 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 History of Any Multi-Drug Resistant Organisms: None Reported Past Surgical History: Breast Surgery, Joint Replacement, Orthopedic Surgery, Tonsillectomy, Tubal Ligation Additional Past Surgical History / Comment(s): LEFT HIP replacement X2, ILDEFONSO FOOT RECONSTRUCTION, CORRECTIVE OSTEOTOMY ildefonso hips, unilateral salpingo-oophorectomy in 1988. Colonoscopy 2018(next after 10 yrs). Past Anesthesia/Blood Transfusion Reactions: No Reported Reaction Additional Past Anesthesia/Blood Transfusion Reaction / Comment(s): HX OF BLOOD TRANSFUSION-NO REACTION. NO FAMILY HX- PT ADOPTED. 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 - Past Family History Mother Family Medical History: Unable to Obtain Additional Family Medical History / Comment(s): PT ADOPTED Medications and Allergies Home Medications Medication Instructions Recorded Confirmed Type L.acidoph,Paracasei, B.lactis 1 each PO DAILY 08/05/16 05/05/23 History [Probiotic] Multivitamins, Thera [Multivitamin] 1 tab PO DAILY 08/05/16 05/05/23 History lisinopriL [Zestril] 10 mg PO DAILY 08/05/16 05/05/23 History Calcium Carbonate/Vitamin D3 1 tab PO DAILY 04/21/22 05/05/23 History [Calcium 250-D Tablet] Allergies Allergy/AdvReac Type Severity Reaction Status Date / Time meperidine [From Demerol] AdvReac Unknown Rapid Verified 05/05/23 08:05 Heart Rate, Sweats morphine AdvReac Unknown Rapid Verified 05/05/23 08:05 Heart Rate, Sweats propoxyphene AdvReac Unknown Rapid Verified 05/05/23 08:05 [From Darvocet-N 100] Heart Rate, Sweats Exam Vital Signs Temp Pulse Resp BP Pulse Ox 05/05/23 08:06 97.9 F 68 16 135/76 96 Intake and Output 05/04/23 05/05/23 05/05/23 22:59 06:59 14:59 Other: Weight 85.275 kg Height 5 feet 10 inches, weight 188 pounds, BMI 27.0. This is a well-developed well-nourished white female who is alert and oriented times 3 in no acute distress. HEENT: Within normal limits. NECK: Supple without mass or thyromegaly. CHEST AND LUNGS: Clear to auscultation. HEART: Regular rate and rhythm. BREASTS: Are without mass or discharge. AXILLARY EXAM: Negative for adenopathy. BACK: Negative for CVA tenderness. ABDOMEN: Soft, nontender, without palpable masses. PELVIC EXAM: Normal external genitalia with minimal atrophy. Cervix and vagina appear normal. There is no unusual discharge. There is no evidence of prolapse. The uterus is midposition, nongravid size and nontender. There are no palpable adnexal masses or tenderness. RECTAL EXAM: Rectovaginal exam is negative for mass or tenderness and is negative for occult blood. EXTREMITIES: Nontender. IMPRESSION: 1. 58-year-old perimenopausal female status post tubal ligation with normal gynecologic exam. 2. Menstrual irregularity with up to 6 months of amenorrhea during the past year. This is consistent with the perimenopause. PLAN: 1. Pap smear was deferred since she had a negative Pap smear cotest on 04/21/2022. 2. Self breast awareness was discussed with the patient. We have also discussed symptoms associated with inflammatory breast cancer. 3. Screening mammogram will be done today. 4. Osteoporosis prevention was discussed. I have stressed the importance of adequate calcium, vitamin D and regular exercise. Recommended amounts of calcium and vitamin D were also discussed. 5. Patient will keep a menstrual calendar and call if she is having significant menstrual problems. 6. She was advised to return in one year for her annual well woman exam and as needed
--- NOTE | 2023-05-06 08:23 | MM ---
Reason for Exam: Screening (asymptomatic). Last mammogram was performed 1 year(s) and 3 month(s) ago. Patient History: Menarche at age 15. First Full-Term at age 22. Left ovary removed at age 47. 11/12/2015, Benign Core Biopsy on the left side. Risk Values: Carol 5 year model risk: 1.2%. NCI Lifetime model risk: 7.6%. Prior Study Comparison: 09/20/2018 Bilateral Screening Mammogram, [facility]. 04/10/2020 Bilateral Screening Mammogram, [facility]. 02/03/2022 Bilateral MG 3D screening mammo w/cad, [facility]. Tissue Density: The breast tissue is heterogeneously dense. This may lower the sensitivity of mammography. Findings: Analyzed By CAD. New cluster of indeterminate microcoils indications upper outer right breast 10 cm from the nipple. Additional views are recommended. Increased number of punctate calcifications upper inner left breast 8 cm from the nipple. Additional views of these microcalcifications also advised. No masses or distortion. Overall Assessment: Incomplete: need additional imaging evaluation, BI-RAD 0 Management: Diagnostic Mammogram of both breasts. . Patient should continue monthly self-breast exams. A clinical breast exam by your physician is recommended on an annual basis. This exam should not preclude additional follow-up of suspicious palpable abnormalities. Note on Carol scores and lifetime risk: 1. A Carol score greater than 3% is considered moderate risk. If this is the case, consider specialist referral to assess eligibility for a risk reducing agent. 2. If overall lifetime risk for the development of breast cancer is 20% or higher, the patient may qualify for future screening with alternating mammogram and breast MRI. Electronically signed and approved by: Jerod Lambert M.D. Radiologis
== END ==
LOC: WWCWWP 07:53
PROVIDERS: ATTEND Obstetrics & Gynecology
DX: Z12.31 Encounter for screening mammogram for malignant neoplasm of breast (principal); N92.6 Irregular menstruation, unspecified; I10 Essential (primary) hypertension; Z87.891 Personal history of nicotine dependence; Z88.5 Allergy status to narcotic agent; Z88.8 Allergy status to other drugs, medicaments and biological substances; Z79.899 Other long term (current) drug therapy
CPT/HCPCS: 77063; 77067

== ENCOUNTER → 2023-05-07 | Outpatient (CLI) | payer MEDICAID ==
--- NOTE | 2023-05-07 11:07 | MM ---
Reason for Exam: Additional evaluation requested from abnormal screening. Last screening mammogram was performed less than 1 month ago. Patient History: Menarche at age 15. First Full-Term at age 22. Left ovary removed at age 24. 11/12/2015, Benign Core Biopsy on the left side. Risk Values: Carol 5 year model risk: 1.2%. NCI Lifetime model risk: 7.6%. Prior Study Comparison: 02/03/2022 Bilateral MG 3D screening mammo w/cad, [facility]. 05/05/2023 Bilateral MG 3D screening mammo w/cad, [facility]. Tissue Density: The breast tissue is heterogeneously dense. This may lower the sensitivity of mammography. Findings: Analyzed By CAD. Indeterminate clusters of microcalcifications upper outer right breast and upper central left breast. Stereotactic core biopsy is recommended bilaterally. Overall Assessment: Suspicious, BI-RAD 4 Management: Stereotactic Core Biopsy of both breasts. . Results were given to the patient verbally at the time of exam. Patient should continue monthly self-breast exams. A clinical breast exam by your physician is recommended on an annual basis. This exam should not preclude additional follow-up of suspicious palpable abnormalities. Note on Carol scores and lifetime risk: 1. A Carol score greater than 3% is considered moderate risk. If this is the case, consider specialist referral to assess eligibility for a risk reducing agent. 2. If overall lifetime risk for the development of breast cancer is 20% or higher, the patient may qualify for future screening with alternating mammogram and breast MRI. Electronically signed and approved by: Jerod Lambert M.D. Radiologis
== END | disposition home or self-care (01) ==
LOC: RADMAMWWP 10:10
PROVIDERS: ATTEND Obstetrics & Gynecology
DX: R92.333 Mammographic heterogeneous density, bilateral breasts (principal)
CPT/HCPCS: 77062; 77066

== ENCOUNTER → 2023-06-03 | Day surgery (SDC) | payer MEDICAID ==
--- NOTE | 2023-06-03 07:57 | P.GSHP ---
History of Present Illness H&P Date: 06/03/23 Chief Complaint: Abnormal bilateral mammogram Rianna is a 58-year-old white female seen in consultation for Dr. Rivera regarding bilateral abnormal mammogram. She underwent a bilateral screening mammogram on . This led to additional imaging of both breast. Addit ional imaging was performed on . This led to indeterminate clusters of microcalcifications upper outer right breast and upper central left breast. Stereotactic core biopsy of both breast recommended. She does not feel any new lumps masses or nodules of concern in either breast. This was found on a routine screening mammogram. She did have an ultrasound-guided left breast biopsy in 2016 which was benign. She has not had any surgery on her breast otherwise. She has not had any recent trauma or infection in the breast. She is not complaining of any nipple discharge or skin changes. Caffeine: decaff coffee/daily nicotine: as a teenager/< 1 Pack/week stopped 30 years ago chocolate: occasional Family History: unknown adopted Hormonal History: menarche: 15 A2, breast fed: 6 weeks, age at first : 22 menopause: not yet, LMP: March with spotting Sept, and May. Surgical History: tonsil bilateral foot surgeries multiple bilateral hip osteotomies bilateral hip replacement tubaligation oophrectomy one side Medical History: HTN moniter by cardiology for leaking mitral valve Social History: nicotine: as above alcohol: occasional drugs: none - Constitutional Constitutional: Reports sweats - EENT Eyes: denies blurred vision, denies pain Ears: deny: decreased hearing, tinnitus Ears, nose, mouth and throat: Denies headache, Denies sore throat - Breasts Breasts: bilateral: as per HPI - Cardiovascular Cardiovascular: Denies chest pain, Denies shortness of breath - Respiratory Respiratory: Denies cough, Denies 7 - Gastrointestinal Gastrointestinal: Denies abdominal pain, Denies diarrhea, Denies nausea, Denies vomiting - Genitourinary (Female) Genitourinary: Denies dysuria, Denies hematuria - Menstruation Menstruation: Reports premenarcheal - Musculoskeletal Musculoskeletal: Reports as per HPI - Integumentary Integumentary: Denies pruritus, Denies rash - Neurological Neurological: Denies numbness, Denies weakness - Psychiatric Psychiatric: Denies anxiety, Denies depression - Endocrine Endocrine: Denies fatigue, Denies weight change - Hematologic/Lymphatic Comment: none - Allergic/Immunologic Allergic/Immunologic: Reports seasonal allergies Past Medical History Past Medical History: Hypertension Additional Past Medical History / Comment(s): HEART PALPITATIONS, PVC's occ, leaky mitral valve. 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 History of Any Multi-Drug Resistant Organisms: None Reported Past Surgical History: Breast Surgery, Joint Replacement, Orthopedic Surgery, Tonsillectomy, Tubal Ligation Additional Past Surgical History / Comment(s): LEFT HIP replacement X2, ILDEFONSO FOOT RECONSTRUCTION, CORRECTIVE OSTEOTOMY ildefonso hips, unilateral salpingo-oophorectomy in 1988. Colonoscopy 2018(next after 10 yrs). Past Anesthesia/Blood Transfusion Reactions: No Reported Reaction Additional Past Anesthesia/Blood Transfusion Reaction / Comment(s): HX OF BLOOD TRANSFUSION-NO REACTION. NO FAMILY HX- PT ADOPTED. 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) Past Drug Use History: None Reported - Past Family History Mother Family Medical History: Unable to Obtain Additional Family Medical History / Comment(s): PT ADOPTED Medications and Allergies Home Medications Medication Instructions Recorded Confirmed Type Multivitamins, Thera [Multivitamin] 1 tab PO DAILY 08/05/16 05/11/23 History lisinopriL [Zestril] 10 mg PO DAILY 08/05/16 05/11/23 History Calcium Carbonate/Vitamin D3 1 tab PO DAILY 04/21/22 05/11/23 History [Calcium 250-D Tablet] Allergies Allergy/AdvReac Type Severity Reaction Status Date / Time meperidine [From Demerol] AdvReac Unknown Rapid Verified 05/11/23 11:01 Heart Rate, Sweats morphine AdvReac Unknown Rapid Verified 05/11/23 11:01 Heart Rate, Sweats propoxyphene AdvReac Unknown Rapid Verified 05/11/23 11:01 [From Darvocet-N 100] Heart Rate, Sweats Surgical - Exam - General moderate distress - Eyes normal ocular movement - ENT no hearing loss - Neck trachea midline - Respiratory normal respiratory effort, clear to auscultation - Cardiovascular Heart Sounds: normal: S1, S2 - Abdomen Abdomen: soft, non tender, no guarding, no rigid, no rebound - Integumentary normal turgor - Musculoskeletal normal gait - Psychiatric oriented to time, oriented to person, oriented to place, speech is normal, memory intact Breast Exam: BRA: 38D Inspection: Bilateral grade 2 ptosis Palpation: Right breast: Multiple positional exam no dominant masses or nodules of concern, dense breast Right axilla: No adenopathy of concern Left breast: Multiple positional exam no dominant masses or nodules of concern, dense breast Left axilla: No adenopathy of concern Results Mammogram reviewed with Dr. Darby Assessment and Plan Assessment: Impression: Bilateral mammographic abnormalities right breast upper outer quadrant, left breast central Plan: Stereotactic core biopsy bilateral breast Risk and benefits of procedure discussed with the patient. Risks include but are not limited to bleeding, infection, reaction to the anesthetic. Vasovagal episode "occurred during the procedure. The patient understands and wishes to proceed. CC: Dr. Miles
--- NOTE | 2023-06-07 09:41 | MM ---
Date of Procedure: 06/03/23 Preoperative Diagnosis: Mammographic abnormality right and left breast Postoperative Diagnosis: Same Procedure(s) Performed: Stereotactic core biopsy right and left breast Anesthesia: local Surgeon: Crystal Lu Pathology: other (Right breast radiograph reveals microcalcifications of concern, left breast radiograph reveals microcalcifications of concern) Condition: stable Disposition: same day Indications for Procedure: Mammographic abnormality bilaterally, right breast upper outer quadrant, left breast central area Operative Findings: Microcalcifications of concern noted in right breast and left breast specimen Description of Procedure: The patient is a 58-year-old white female who underwent routine screening mammogram and was noted to have microcalcifications of concern in both breasts. In the right breast they were located in the upper outer quadrant and in the left breast in the central area. The patient on physical examination had dense breasts but no dominant masses or nodules of concern in either breast. Following explanation of the risks and benefits of the procedure stereotactic core biopsy was recommended. The patient wished this to be performed. Risks include but are not limited to bleeding, infection, reaction to the anesthetic. If the patient were noted to have discordant biopsy results further tissue acquisition may be necessary. The patient was taken to the stereotactic core biopsy room. She was positioned in the upright chair. A magnetometer operator film of the right breast was obtained using a lateral to medial approach. The lesion of concern was identified. The lesion was targeted. The breast was prepped using chlorhexidine. 20 mL of 1% lidocaine was used to anesthetize the area of concern. A 9-gauge vacuum-assisted core rotating biopsy needle was driven to the correct coordinates. Pre-fire film was obtained. The needle was noted to be in the correct location. The needle was fired. Post fire film was obtained and the needle was noted to be in the correct location. 15 core biopsy specimens were obtained. Radiograph of the specimen revealed the microcalcifications of concern to be present. A secure kareem Top-Hat clip was deployed. This was noted to be in the correct location. The patient was then repositioned in the upright chair. A stero film of the left breast was obtained using a CC approach. A CC from above approach was utilized. The lesion of concern was identified. The lesion was targeted. The breast was prepped using chlorhexidine. 20 mL of 1% lidocaine was used to anesthetize the area of concern. A 9-gauge vacuum-assisted core rotating biopsy needle was driven to the correct coordinates. Prefire film was obtained. The needle was noted to be in the correct location. The needle was fired. Post fire film was obtained and the needle was noted to be in the correct location. 7 core biopsy specimens were obtained. Radiograph of the specimen revealed microcalcifications of concern to be present. A secure kareem Top-Hat clip was deployed. This was noted to be in the correct location. The patient tolerated the procedure in stable condition. Post biopsy radiographs will be obtained to identify clip placement. The patient will follow-up with Dr. Isaac next week. JOHANNA
== END ==
LOC: RADMAMWWP 07:00
PROVIDERS: ATTEND Surgery
DX: N60.32 Fibrosclerosis of left breast (principal); N60.31 Fibrosclerosis of right breast; I10 Essential (primary) hypertension; F10.90 Alcohol use, unspecified, uncomplicated; Z96.643 Presence of artificial hip joint, bilateral; Z90.89 Acquired absence of other organs; Z98.51 Tubal ligation status; Z98.890 Other specified postprocedural states; Z87.891 Personal history of nicotine dependence
CPT/HCPCS: 88305; 19081; 19082; A4648

== ENCOUNTER → 2023-06-03 | Outpatient (CLI) | payer MEDICAID ==
[2023-06-03 08:04] VITALS: BP 136/84; PULSE 74; RESP 17; TEMP 97.8
--- NOTE | 2023-06-03 09:04 | P.PCN ---
Date of Procedure: 06/03/23 Preoperative Diagnosis: Mammographic abnormality right and left breast Postoperative Diagnosis: Same Procedure(s) Performed: Stereotactic core biopsy right and left breast Anesthesia: local Surgeon: Crystal Lu Pathology: other (Right breast radiograph reveals microcalcifications of concern, left breast radiograph reveals microcalcifications of concern) Condition: stable Disposition: same day Indications for Procedure: Mammographic abnormality bilaterally, right breast upper outer quadrant, left breast central area Operative Findings: Microcalcifications of concern noted in right breast and left breast specimen Description of Procedure: The patient is a 58-year-old white female who underwent routine screening mammogram and was noted to have microcalcifications of concern in both breasts. In the right breast they were located in the upper outer quadrant and in the left breast in the central area. The patient on physical examination had dense breasts but no dominant masses or nodules of concern in either breast. Following explanation of the risks and benefits of the procedure stereotactic core biopsy was recommended. The patient wished this to be performed. Risks include but are not limited to bleeding, infection, reaction to the anesthetic. If the patient were noted to have discordant biopsy results further tissue acquisition may be necessary. The patient was taken to the stereotactic core biopsy room. She was positioned in the upright chair. A roller leveler film of the right breast was obtained using a lateral to medial approach. The lesion of concern was identified. The lesion was targeted. The breast was prepped using chlorhexidine. 20 mL of 1% lidocaine was used to anesthetize the area of concern. A 9-gauge vacuum-assisted core rotating biopsy needle was driven to the correct coordinates. Pre-fire film was obtained. The needle was noted to be in the correct location. The needle was fired. Post fire film was obtained and the needle was noted to be in the correct location. 15 core biopsy specimens were obtained. Radiograph of the specimen revealed the microcalcifications of concern to be present. A secure kareem Top-Hat clip was deployed. This was noted to be in the correct location. The patient was then repositioned in the upright chair. A stero film of the left breast was obtained using a CC approach. A CC from above approach was utilized. The lesion of concern was identified. The lesion was targeted. The breast was prepped using chlorhexidine. 20 mL of 1% lidocaine was used to anesthetize the area of concern. A 9-gauge vacuum-assisted core rotating biopsy needle was driven to the correct coordinates. Prefire film was obtained. The needle was noted to be in the correct location. The needle was fired. Post fire film was obtained and the needle was noted to be in the correct location. 7 core biopsy specimens were obtained. Radiograph of the specimen revealed microcalcifications of concern to be present. A secure kareem Top-Hat clip was deployed. This was noted to be in the correct location. The patient tolerated the procedure in stable condition. Post biopsy radiographs will be obtained to identify clip placement. The patient will follow-up with Dr. Isaac next week.
== END ==
LOC: WWCWWP 07:02
PROVIDERS: ATTEND Surgery
DX: R92.0 Mammographic microcalcification found on diagnostic imaging of breast (principal); Z88.5 Allergy status to narcotic agent; Z88.8 Allergy status to other drugs, medicaments and biological substances

== ENCOUNTER → 2023-06-10 | Outpatient (CLI) | payer MEDICAID ==
--- NOTE | 2023-06-10 09:59 | P.PN ---
Subjective Progress Note Date: 06/10/23 Principal diagnosis: fibrocystic breast changes Rianna is a 58 year old white female status post bilateral breast stero-core biopsy on 06-03-23. Both sides were benign concordant. She tolerated the biopsy without any difficulty. Objective - Vital Signs Vital signs: Intake & Output 06/09/23 06/10/23 06/10/23 18:59 06:59 18:59 Weight 83.915 kg - Constitutional General appearance: Present: cooperative - EENT Eyes: Present: EOMI ENT: Present: hearing grossly normal - Neck Neck: Present: normal ROM - Respiratory Respiratory: bilateral: CTA - Cardiovascular Rhythm: regular Heart sounds: normal: S1, S2 - Integumentary Integumentary Comment(s): Bilateral biopsy sites clean and dry, no evidence of infection, no evidence of hematoma mild ecchymosis at the right biopsy site Assessment and Plan Assessment: Impression: [place] [id number] benign concordant both sides Plan: Bilateral mammogram in 6 months with position exam at that time CC: Dr. Rivera
[2023-06-10 10:14] VITALS: BP 140/84; PULSE 101; RESP 16; TEMP 98.1
== END ==
LOC: WWCWWP 09:44
PROVIDERS: ATTEND Surgery
DX: N60.12 Diffuse cystic mastopathy of left breast (principal); Z88.8 Allergy status to other drugs, medicaments and biological substances; Z88.5 Allergy status to narcotic agent

== ENCOUNTER → 2023-11-08 | Outpatient (CLI) | payer MEDICAID ==
--- NOTE | 2023-11-08 13:33 | MM ---
Reason for Exam: Follow-up at short interval from prior study. Last screening mammogram was performed 6 month(s) ago. Patient History: Menarche at age 15. First Full-Term at age 22. Left ovary removed at age 24. 06/03/2023, MG stereo VAD BX RT on the Right side. 06/03/2023, Benign MG stereo VAD BX LT on the left side. 11/12/2015, Benign Core Biopsy on the left side. Risk Values: Carol 5 year model risk: 1.6%. NCI Lifetime model risk: 9.5%. Prior Study Comparison: 03/08/2017 Bilateral Screening Mammogram, [facility]. 09/20/2018 Bilateral Screening Mammogram, [facility]. 04/10/2020 Bilateral Screening Mammogram, [facility]. 02/03/2022 Bilateral MG 3D screening mammo w/cad, [facility]. 05/05/2023 Bilateral MG 3D screening mammo w/cad, [facility]. 05/07/2023 Bilateral MG 3D work up w/cad ILDEFONSO, [facility]. Tissue Density: There are scattered areas of fibroglandular density. Findings: Analyzed By CAD. Biopsy changes noted bilaterally with clips noted to be in place. No evidence for mass or distortion. No suspicious microcalcifications. Overall Assessment: Benign, BI-RAD 2 Management: Screening Mammogram of both breasts in 1 year. . Results were given to the patient verbally at the time of exam. Patient should continue monthly self-breast exams. A clinical breast exam by your physician is recommended on an annual basis. This exam should not preclude additional follow-up of suspicious palpable abnormalities. Note on Carol scores and lifetime risk: 1. A Carol score greater than 3% is considered moderate risk. If this is the case, consider specialist referral to assess eligibility for a risk reducing agent. 2. If overall lifetime risk for the development of breast cancer is 20% or higher, the patient may qualify for future screening with alternating mammogram and breast MRI. Electronically signed and approved by: Jerod Lambert M.D. Radiologis
== END | disposition home or self-care (01) ==
LOC: RADMAMWWP 12:45
PROVIDERS: ATTEND Surgery
DX: R92.323 Mammographic fibroglandular density, bilateral breasts (principal)
CPT/HCPCS: 77062; 77066

== ENCOUNTER → 2023-11-12 | Outpatient (CLI) | payer MEDICAID ==
[2023-11-12 09:26] VITALS: BP 141/84; PULSE 59; RESP 16; TEMP 98.4
--- NOTE | 2023-11-12 09:26 | P.PN ---
Subjective Progress Note Date: 11/12/23 Principal diagnosis: fibrocystic breast changes Rianna is a 58-year-old white female seen in consultation for Dr. Rivera in June 2023 regarding bilateral abnormal mammogram. She underwent a bilateral screening mammogram on . This led to additional imaging of gabriel th breast. Additional imaging was performed on . This led to indeterminate clusters of microcalcifications upper outer right breast and upper central left breast. Stereotactic core biopsy of both breast recommended. She does not feel any new lumps masses or nodules of concern in either breast. This was found on a routine screening mammogram. She did have an ultrasound-guided left breast biopsy in 2015 which was benign. She has not had any surgery on her breast otherwise. She has not had any recent trauma or infection in the breast. She is not complaining of any nipple discharge or skin changes. She had a bilateral stero biopsy on 06-03-23 which was benign concordant. She had a bilateral mammogram on 11-08-23 which was personally revoewed and was BIRAD 2. She is not complaining of any new lumps masses or nodules of concern in either breast. The patient is still having periods, she has not had one for 6 months. She was started on clonidine secondary to hot flashes and night sweats. Carol Risk: 5 year: 1.6% lifetimerisk: 9.5% Caffeine: decaff coffee/daily nicotine: as a teenager/< 1 Pack/week stopped 30 years ago chocolate: occasional Family History: unknown adopted Hormonal History: menarche: 15 A2, breast fed: 6 weeks, age at first : 22 menopause: not yet, LMP: March with spotting Apr, and May. Surgical History: tonsil bilateral foot surgeries multiple bilateral hip osteotomies bilateral hip replacement tubaligation oophrectomy one side Medical History: HTN moniter by cardiology for leaking mitral valve Social History: nicotine: as above alcohol: occasional drugs: none - Constitutional Constitutional: Reports sweats - EENT Eyes: denies blurred vision, denies pain Ears: deny: decreased hearing, tinnitus Ears, nose, mouth and throat: Denies headache, Denies sore throat - Breasts Breasts: bilateral: as per HPI - Cardiovascular Cardiovascular: Denies chest pain, Denies shortness of breath - Respiratory Respiratory: Denies cough - Gastrointestinal Gastrointestinal: Denies abdominal pain, Denies diarrhea, Denies nausea, Denies vomiting - Genitourinary (Female) Genitourinary: Denies dysuria, Denies hematuria - Menstruation Menstruation: Reports premenarcheal - Musculoskeletal Musculoskeletal: Reports as per HPI - Integumentary Integumentary: Denies pruritus, Denies rash - Neurological Neurological: Denies numbness, Denies weakness - Psychiatric Psychiatric: Denies anxiety, Denies depression - Endocrine Endocrine: Denies fatigue, Denies weight change - Hematologic/Lymphatic Comment: none - Allergic/Immunologic Allergic/Immunologic: Reports seasonal allergies Past Medical History Past Medical History: Hypertension Additional Past Medical History / Comment(s): HEART PALPITATIONS, PVC's occ, leaky mitral valve. 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 History of Any Multi-Drug Resistant Organisms: None Reported Past Surgical History: Breast Surgery, Joint Replacement, Orthopedic Surgery, Tonsillectomy, Tubal Ligation Additional Past Surgical History / Comment(s): LEFT HIP replacement X2, ILDEFONSO FOOT RECONSTRUCTION, CORRECTIVE OSTEOTOMY ildefonso hips, unilateral salpingo-oophorectomy in 1988. Colonoscopy 2018(next after 10 yrs). Past Anesthesia/Blood Transfusion Reactions: No Reported Reaction Additional Past Anesthesia/Blood Transfusion Reaction / Comment(s): HX OF BLOOD TRANSFUSION-NO REACTION. NO FAMILY HX- PT ADOPTED. 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) Past Drug Use History: None Reported - Past Family History Mother Family Medical History: Unable to Obtain Additional Family Medical History / Comment(s): PT ADOPTED Medications and Allergies Home Medications Medication Instructions Recorded Confirmed Type Multivitamins, Thera [Multivitamin] 1 tab PO DAILY 08/05/16 05/11/23 History lisinopriL [Zestril] 10 mg PO DAILY 08/05/16 05/11/23 History Calcium Carbonate/Vitamin D3 1 tab PO DAILY 04/21/22 05/11/23 History [Calcium 250-D Tablet] Allergies Allergy/AdvReac Type Severity Reaction Status Date / Time meperidine [From Demerol] AdvReac Unknown Rapid Verified 05/11/23 11:01 Heart Rate, Sweats morphine AdvReac Unknown Rapid Verified 05/11/23 11:01 Heart Rate, Sweats propoxyphene AdvReac Unknown Rapid Verified 05/11/23 11:01 [From Darvocet-N 100] Heart Rate, Sweats Objective - Vital Signs Vital signs: Vital Signs Temp 98.4 F 11/12/23 08:51 Pulse 59 L 11/12/23 08:51 Resp 16 11/12/23 08:51 BP 141/84 11/12/23 08:51 Pulse Ox 96 11/12/23 08:51 FiO2 Intake & Output 11/11/23 11/12/23 11/12/23 18:59 06:59 18:59 Weight 83.915 kg - Constitutional General appearance: Present: cooperative - EENT Eyes: Present: EOMI ENT: Present: hearing grossly normal - Neck Neck: Present: normal ROM - Respiratory Respiratory: bilateral: CTA - Cardiovascular Rhythm: regular Heart sounds: normal: S1, S2 - Gastrointestinal General gastrointestinal: Present: soft - Integumentary Integumentary: Present: normal turgor - Musculoskeletal Musculoskeletal: Present: gait normal - Psychiatric Psychiatric: Present: A&O x's 3, appropriate affect, intact judgment & insight - Additional findings Additional findings: Breast Exam: BRA: 38D Inspection: Bilateral grade 2 ptosis Palpation: Right breast: Multi positional exam no dominant masses or nodules of concern, de nse breast Right axilla: No adenopathy of concern Left breast: Multi positional exam no dominant masses or nodules of concern, dense breast Left axilla: No adenopathy of concern Assessment and Plan Assessment: Impression: fibrocystic breast changes bilateral mammogram 11-08-23 BIRAD 2 Plan: bilateral mammogram in 1 year with appointment at that time CC: Dr. Miles
== END ==
LOC: WWCWWP 08:40
PROVIDERS: ATTEND Surgery
DX: R92.8 Other abnormal and inconclusive findings on diagnostic imaging of breast (principal); N60.12 Diffuse cystic mastopathy of left breast; Z98.51 Tubal ligation status; Z87.891 Personal history of nicotine dependence; Z88.5 Allergy status to narcotic agent; Z88.8 Allergy status to other drugs, medicaments and biological substances

== ENCOUNTER → 2024-06-13 | Outpatient (CLI) | payer MEDICAID ==
[2024-06-13 16:12] VITALS: BP 145/85; PULSE 70; RESP 17; TEMP 98.5
--- NOTE | 2024-06-13 17:26 | P.HPOB ---
History of Present Illness H&P Date: 06/13/24 Chief Complaint: Patient is here for her routine gynecologic exam. This is a 59-year-old G3, P3 with an LMP of 03/24/2024. The patient is status post tubal ligation. Her menstrual periods have been spacing out over the past couple of years. She went about 10 months without vaginal bleeding and did have a light menstrual period from 03/24/2024 to 04/01/2024. She has been having worsening hot flashes, night sweats and emotional changes. She was put on clonidine for her high blood pressure thinking that it may help with her hot flashes. She states that did help with the hot flashes but it did make her more tired, so her PCP discontinued it. She has not had any vaginal bleeding since March. Review of Systems The patient's weight has been stable over the last year. She denies respiratory, cardiac, or G.I. problems. Past Medical History Past Medical History: Hypertension Additional Past Medical History / Comment(s): HEART PALPITATIONS, PVC's occ, leaky mitral valve. 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 History of Any Multi-Drug Resistant Organisms: None Reported Past Surgical History: Breast Surgery, Joint Replacement, Orthopedic Surgery, Tonsillectomy, Tubal Ligation Additional Past Surgical History / Comment(s): LEFT HIP replacement X2, ILDEFONSO FOOT RECONSTRUCTION, CORRECTIVE OSTEOTOMY ildefonso hips, unilateral salpingo-oophorectomy in 1988. Colonoscopy 2017(next after 10 yrs). Bilateral breast core biopsies in 2022(benign). Past Anesthesia/Blood Transfusion Reactions: No Reported Reaction Additional Past Anesthesia/Blood Transfusion Reaction / Comment(s): HX OF BLOOD TRANSFUSION-NO REACTION. NO FAMILY HX- PT ADOPTED. Past Psychological History: No Psychological Hx Reported Smoking Status: Former smoker Past Alcohol Use History: Occasional (3 drinks per week.) Additional Past Alcohol Use History / Comment(s): SMOKED FOR A COUPLE YEARS TEENAGER ([age]YRS OLD) Past Drug Use History: None Reported Additional History: She has been since 1988. 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. - Past Family History Mother Family Medical History: Unable to Obtain Additional Family Medical History / Comment(s): PT ADOPTED Medications and Allergies Home Medications Medication Instructions Recorded Confirmed Type Multivitamins, Thera [Multivitamin] 1 tab PO DAILY 08/05/16 06/13/24 History lisinopriL [Zestril] 20 mg PO DAILY 08/05/16 06/13/24 History Calcium Carbonate/Vitamin D3 1 tab PO DAILY 04/21/22 06/13/24 History [Calcium 250-D Tablet] [place]-3/Dha/Epa/Fish Oil [Fish Oil 1 cap PO DAILY 06/13/24 06/13/24 History 1,000 mg Softgel] Allergies Allergy/AdvReac Type Severity Reaction Status Date / Time meperidine [From Demerol] AdvReac Unknown Rapid Verified 06/13/24 16:08 Heart Rate, Sweats morphine AdvReac Unknown Rapid Verified 06/13/24 16:08 Heart Rate, Sweats propoxyphene AdvReac Unknown Rapid Verified 06/13/24 16:08 [From Darvocet-N 100] Heart Rate, Sweats Exam Vital Signs Temp Pulse Resp BP Pulse Ox 06/13/24 16:08 98.5 F 70 17 145/85 97 Intake and Output 06/13/24 06/13/24 06/13/24 06:59 14:59 22:59 Other: Weight 85.275 kg Height 5 feet 10 inches, weight 188 pounds, BMI 27.0. This is a well-developed well-nourished white female who is alert and oriented times 3 in no acute distress. HEENT: Within normal limits. NECK: Supple without mass or thyromegaly. CHEST AND LUNGS: Clear to auscultation. HEART: Regular rate and rhythm. BREASTS: Are without mass or discharge. AXILLARY EXAM: Negative for adenopathy. BACK: Negative for CVA tenderness. ABDOMEN: Soft, nontender, without palpable masses. PELVIC EXAM: Normal external genitalia. Cervix and vagina appear normal. There is no unusual discharge. There is no evidence of prolapse. The uterus is midposition, nongravid size and nontender. There are no palpable adnexal masses or tenderness. RECTAL EXAM: Rectovaginal exam is negative for mass or tenderness and is negative for occult blood. EXTREMITIES: Nontender. IMPRESSION: 1. 59-year-old perimenopausal female who is status post tubal ligation, with increasing oligomenorrhea and vasomotor symptoms. 2. Normal gynecologic exam. PLAN: 1. Pap smear was deferred since she had a negative Pap smear cotest on 04/21/2022. 2. Self breast awareness was discussed with the patient. We have also discussed symptoms associated with inflammatory breast cancer. 3. Bilateral diagnostic mammogram was benign on 11/08/2023. Bilateral screening mammogram was recommended after 1 year. The order slip was given to the patient for this and she will do this in October 2024. 4. Blood testing will include FSH and estradiol. If these test indicates she is well into the menopause, we can consider a pelvic ultrasound to determine endometrial thickness. 5. We have had a long discussion regarding different treatments for menopausal symptoms including SSRI medications as well as HRT. We had a long discussion regarding HRT including the WHI study findings including possible increased risk for heart attack, stroke, blood clots, and breast cancer. We will get the blood test back and consider SSRI trial. She states she would probably prefer this over HRT at this time. 6. She was advised to return in one year for her annual well woman exam and as needed.
== END ==
LOC: WWCWWP 15:56
PROVIDERS: ATTEND Obstetrics & Gynecology
DX: Z01.419 Encounter for gynecological examination (general) (routine) without abnormal findings (principal); N91.5 Oligomenorrhea, unspecified; Z78.0 Asymptomatic menopausal state; Z98.51 Tubal ligation status; Z88.5 Allergy status to narcotic agent; Z88.8 Allergy status to other drugs, medicaments and biological substances; Z87.891 Personal history of nicotine dependence

== ENCOUNTER → 2024-06-17 | Outpatient (CLI) | payer MEDICAID ==
[2024-06-17 13:12] LABS: Estradiol 26.8 pg/mL
[2024-06-17 15:02] LABS: Follicle Stimulating Hormone 61.7 mIU/mL
== END | disposition home or self-care (01) ==
LOC: LABWHC1 08:09
PROVIDERS: ATTEND Obstetrics & Gynecology
DX: N92.4 Excessive bleeding in the premenopausal period (principal); N91.4 Secondary oligomenorrhea
CPT/HCPCS: 36415; 82670; 83001